=== PATIENT | male | born 1990 | race Caucasian/White ===

== ENCOUNTER 2023-12-06 07:12 | Emergency (ER) | payer MEDICAID, SELFPAY ==
[2023-12-06] MEDS: NS 1,000 ML IV SCH (07:51)
[2023-12-06 08:10] LABS: VENOUS BASE EXCESS -1.4 (-2.0-2.0); VENOUS HCO3 25.2 MMOL/L (23.0-27.0); VENOUS O2 SATURATION 92.3 % (60.0-80.0); VENOUS PARTIAL PRESSURE CO2 48.6 mmHg (38.0-50.0); VENOUS PARTIAL PRESSURE O2 66.5 mmHg (30.0-50.0); VENOUS PH 7.332 UNITS (7.330-7.430); VENOUS STANDARD HCO3 23.2 MMOL/L; VENOUS TOTAL CO2 26.7 MMOL/L (24.0-28.0)
[2023-12-06 08:20] LABS: BASO # 0.1 10^3/uL (0.0-0.2); BASO % 0.4 % (0.0-1.0); EOS % 0.2 % (0.0-3.0); HEMATOCRIT 43.5 % (42.0-52.0); HEMOGLOBIN 15.5 g/dl (13.5-17.5); LYMPH # 4.1 10^3/uL (1.5-5.0); LYMPH % 29.4 % (24.0-44.0); MEAN CORPUSCULAR HEMOGLOBIN 31.3 pg (27.0-33.0); MEAN CORPUSCULAR HGB CONC 35.6 g/dl (32.0-36.5); MEAN CORPUSCULAR VOLUME 87.9 fl (80.0-96.0); MONO # 1.2 10^3/uL (0.0-0.8); MONO % 8.6 % (2.0-8.0); NEUTROPHILS # 8.4 10^3/uL (1.5-8.5); NEUTROPHILS % 61.1 % (36.0-66.0); PLATELET COUNT, AUTOMATED 209 10^3/uL (150-450); RED BLOOD COUNT 4.95 10^6/uL (4.30-6.10); WHITE BLOOD COUNT 13.8 10^3/uL (4.0-10.0)
[2023-12-06 08:36] LABS: ETHYL ALCOHOL (ETHANOL) 0.004 % (0.000-0.010)
[2023-12-06 08:38] LABS: ALBUMIN 4.2 G/DL (3.2-5.2); ALKALINE PHOSPHATASE 61 U/L (46-116); ALT/SGPT 39 U/L (7.0-40); AST/SGOT 38 U/L (<34); BILIRUBIN,DIRECT 0.1 MG/DL (<0.4); BILIRUBIN,TOTAL 0.4 MG/DL (0.3-1.2); BLOOD UREA NITROGEN 13 MG/DL (9-23); CALCIUM LEVEL 9.7 MG/DL (8.5-10.1); CARBON DIOXIDE LEVEL 24 MMOL/L (20-31); CHLORIDE LEVEL 108 MMOL/L (98-107); CREATININE FOR GFR 0.84 MG/DL (0.70-1.30); GLOMERULAR FILTRATION RATE > 60.0 (>60); GLUCOSE, FASTING 85 MG/DL (60-100); POTASSIUM SERUM 3.9 MMOL/L (3.5-5.1); SALICYLATE LEVEL < 3.0 MG/DL (<30); SODIUM LEVEL 142 MMOL/L (136-145); TOTAL PROTEIN 7.3 G/DL (5.7-8.2)
[2023-12-06 08:41] LABS: THYROID STIMULATING HORMONE 2.541 uIU/ML (0.55-4.78)
[2023-12-06 08:46] LABS: CPK CREATINE PHOSPHOKINASE 741 U/L (46-171)
[2023-12-06 08:56] LABS: OSMOLALITY SERUM 296 MOSM/KG (275-295)
[2023-12-06] MEDS ORDERED: MED REC CURRENTLY UNOBTAINABLE XX SCH (10:00)
[2023-12-06] MEDS: NS 1,000 ML IV ONE (10:08)
[2023-12-06] MEDS ORDERED: LAMO25TA4 PO (14:53)
[2023-12-06] MEDS ORDERED: BUSP10TA PO (14:53)
[2023-12-06] MEDS ORDERED: VITA500045 PO (14:53)
[2023-12-06] MEDS ORDERED: SUBO8MIS SL (14:53)
[2023-12-06] MEDS ORDERED: OMEG1CAP85 PO (14:53)
[2023-12-06] MEDS ORDERED: GABA-282 PO (14:53)
[2023-12-06] MEDS ORDERED: MILKSUS3 PO (14:53)
[2023-12-06] MEDS ORDERED: HOME MED LIST COMPLETE! XX SCH (14:55)
[2023-12-06] MEDS ORDERED: diphenhydrAMINE 50MG/ML VIAL As Ordered ONE (15:51)
[2023-12-06] MEDS ORDERED: HALOPERIDOL LACTATE 5MG/ML VIAL As Ordered ONE (15:51)
[2023-12-06] MEDS ORDERED: LORazepam 2 MG/ML 1ML VIAL As Ordered ONE (15:52)
[2023-12-06] MEDS: LORazepam 2 MG/ML 1ML VIAL IM ONE (16:01)
[2023-12-06] MEDS: diphenhydrAMINE 50MG/ML VIAL IM ONE (16:02)
[2023-12-06] MEDS: HALOPERIDOL LACTATE 5MG/ML VIAL IM ONE (16:02)
[2023-12-06 17:30] LABS: BARBITURATES URINE NEGATIVE (NEGATIVE); CANNABINOIDS URINE NEGATIVE (NEGATIVE); COCAINE METABOLITE URINE NEGATIVE (NEGATIVE); METHADONE URINE NEGATIVE (NEGATIVE); OPIATES URINE NEGATIVE (NEGATIVE); PHENCYCLIDINE URINE NEGATIVE (NEGATIVE)
[2023-12-06 17:32] LABS: AMPHETAMINES LEVEL URINE POSITIVE (NEGATIVE); BENZODIAZEPINES URINE POSITIVE (NEGATIVE)
[2023-12-07 12:06] VITALS: BP 126/71; TEMP 98.7; O2SAT 99
== END 2023-12-07 12:14 | disposition home or self-care (01) ==
LOC: M ED 07:12 → EDBD 07:12 → M ED 12-07 12:14
DX: F19.10 Other psychoactive substance abuse, uncomplicated (principal); Z79.899 Other long term (current) drug therapy
CPT/HCPCS: 70450; 80048; 80076; 80143; 80307; 82077; 82550; 82803; 83930; 84443; 85025; 93005; 93041; 94760; 96360; 96361; 96372; 99285; J1200; J1630; J2060

== ENCOUNTER → 2023-12-18 | Outpatient (CLI) | payer MEDICAID ==
[~2023-12-18] MED LIST: BUSP10TA PO; GABA-282 PO; LAMO25TA4 PO; MILKSUS3 PO; OMEG1CAP85 PO; SUBO8MIS SL; VITA500045 PO
== END ==
LOC: M OUTALCOH 07:29
PROVIDERS: ATTEND Psychiatry & Neurology Psychiatry
DX: F11.20 Opioid dependence, uncomplicated (principal)